=== PATIENT | male | born 1955 | race Caucasian/White ===

== ENCOUNTER → 2020-04-26 | Outpatient (CLI) | payer OTHER ==
[~2020-04-26] MED LIST: AMOX-358 PO; ASPI-586 PO; ATOR80TA76 PO; CLOP75TA28 PO; HYDR-3455 PO; LOSA25TA41 PO; MTP25TSR PO; OMG1KC PO; PANT40TA52 PO; [UNRECOGNIZED DRUG - OTHER]; [UNRECOGNIZED DRUG - REMARK]
== END ==
LOC: CARD 09:32
PROVIDERS: ATTEND Physician Assistant
DX: I50.9 Heart failure, unspecified (principal); Z20.828 Contact with and (suspected) exposure to other viral communicable diseases
CPT/HCPCS: 93306

== ENCOUNTER → 2020-12-25 | Outpatient (CLI) | payer OTHER ==
[~2020-12-25] MED LIST changes: +REGADENOSON 0.4 MG/5 ML SYR (LEXISCAN) IV ONE
[2020-12-25 10:14] VITALS: BP 169/104
--- NOTE | 2020-12-25 14:31 | Cardiology Stress Test Report ---
Stress Test Report Date of Procedure/Referring: Date of Procedure: Dec 25, 2020 PCP Ankita Helms MD Admitting Physician John Mohr DO Indications: HTN Baseline Heart Rate: 80 Baseline Blood Pressure: Blood Pressure Systolic: 169 Blood Pressure Diastolic: 104 Baseline Vitals Vital Signs Date Time Temp Pulse Resp B/P (MAP) Pulse Ox O2 Delivery O2 Flow Rate FiO2 12/25/20 10:14 80 169/104 (125) 98 Baseline EKG: Baseline EKG: NSR Summary After explaining the procedure to the patient, he signed a consent and then brought to the stress nuclear laboratory. Patient received 0.4 mg Lexiscan for stress test, ECG, heart rate and blood pressure were monitored continuously. Resting and stress dose of radio tracer were injected, imaging was acquired and reviewed in short axis, horizontal long axis and vertical long axis views. TID: 1.09 SSS: 2 SDS: 2 EF: 61 1. Patient tolerated Lexiscan well 2. Diaphragmatic attenuation with typical male pattern with no significant ischemia or infarction on SPECT images 3. Normal left ventricular size, EF 61% ANKITA HELMS MD Dec 25, 2020 14:31
== END ==
LOC: CARD 07:45
PROVIDERS: ATTEND Internal Medicine Cardiovascular Disease
DX: I10 Essential (primary) hypertension (principal)
CPT/HCPCS: 78452; 93017; A9502